=== PATIENT | male | born 1975 | race African-American/Black ===

== ENCOUNTER 2018-09-08 11:19 | Emergency (ER) | payer BC, OTHER, SELFPAY ==
[2018-09-08 11:43] LABS: Urine Blood 1+ (NEG); Urine Glucose NEGATIVE (NEG); Urine Protein NEGATIVE (NEG); Urine Specific Gravity 1.025 (1.005-1.030)
--- NOTE | 2018-09-08 11:56 | EDPHYS ---
Physician Documentation [facility] Name: Guicho Platt Age: 43 yrs Sex: Male : 1975 Arrival Date: 09/08/2018 Time: 11:23 Bed 20 Private MD: ED Physician Bertrand Brooks HPI: 09/08 11:52 This 43 yrs old Black Male presents to ER via Ambulatory with complaints of Dizziness. sergio 11:52 The patient presents with dizziness. Onset: The symptoms/episode began/occurred just sergio prior to arrival. Context: occurred while the patient was working, in heat, no ventilation. Modifying factors: The symptoms are alleviated by getting in cool enviroment. Associated signs and symptoms: The patient has no apparent associated signs or symptoms. Severity of symptoms: At their worst the symptoms were mild in the emergency department the symptoms are unchanged. Patient's baseline: Neuro: alert and fully oriented. The patient has not experienced similar symptoms in the past. Historical: - Allergies: 11:25 No Known Allergies; hj - Home Meds: 11:25 None [Active]; hj - PMHx: 11:25 None; hj - PSHx: 11:25 None; hj - Immunization history:: Adult Immunizations. - Social history:: Smoking status: . - Ebola Screening: : Patient denies travel to an Ebola-affected area in the 21 days before illness onset. - Family history:: not pertinent. ROS: 11:52 Constitutional: Negative for fever, chills, and weight loss, Eyes: Negative for injury, sergio pain, redness, and discharge, ENT: Negative for injury, pain, and discharge, Neck: Negative for injury, pain, and swelling, Cardiovascular: Negative for chest pain, palpitations, and edema, Respiratory: Negative for shortness of breath, cough, wheezing, and pleuritic chest pain, Abdomen/GI: Negative for abdominal pain, nausea, vomiting, diarrhea, and constipation, Back: Negative for injury and pain, : Negative for injury, bleeding, discharge, and swelling, MS/Extremity: Negative for injury and deformity, Skin: Negative for injury, rash, and discoloration, Psych: Negative for depression, anxiety, suicide ideation, homicidal ideation, and hallucinations, Allergy/Immunology: Negative for hives, rash, and allergies, Endocrine: Negative for neck swelling, polydipsia, polyuria, polyphagia, and marked weight changes, Hematologic/Lymphatic: Negative for swollen nodes, abnormal bleeding, and unusual bruising. 11:52 Neuro: Positive for dizziness. Exam: 11:52 Constitutional: This is a well developed, well nourished patient who is awake, alert, sergio and in no acute distress. Head/Face: Normocephalic, atraumatic. Eyes: Pupils equal round and reactive to light, extra-ocular motions intact. Lids and lashes normal. Conjunctiva and sclera are non-icteric and not injected. Cornea within normal limits. Periorbital areas with no swelling, redness, or edema. ENT: Nares patent. No nasal discharge, no septal abnormalities noted. Tympanic membranes are normal and external auditory canals are clear. Oropharynx with no redness, swelling, or masses, exudates, or evidence of obstruction, uvula midline. Mucous membranes moist. Neck: Trachea midline, no thyromegaly or masses palpated, and no cervical lymphadenopathy. Supple, full range of motion without nuchal rigidity, or vertebral point tenderness. No Meningismus. Chest/axilla: Normal chest wall appearance and motion. Nontender with no deformity. No lesions are appreciated. Cardiovascular: Regular rate and rhythm with a normal S1 and S2. No gallops, murmurs, or rubs. Normal PMI, no JVD. No pulse deficits. Respiratory: Lungs have equal breath sounds bilaterally, clear to auscultation and percussion. No rales, rhonchi or wheezes noted. No increased work of breathing, no retractions or nasal flaring. Abdomen/GI: Soft, non-tender, with normal bowel sounds. No distension or tympany. No guarding or rebound. No evidence of tenderness throughout. Back: No spinal tenderness. No costovertebral tenderness. Full range of motion. Male : Normal genitalia with no discharge or lesions. Skin: Warm, dry with normal turgor. Normal color with no rashes, no lesions, and no evidence of cellulitis. MS/ Extremity: Pulses equal, no cyanosis. Neurovascular intact. Full, normal range of motion. Neuro: Awake and alert, GCS 15, oriented to person, place, time, and situation. Cranial nerves II-XII grossly intact. Motor strength 5/5 in all extremities. Sensory grossly intact. Cerebellar exam normal. Normal gait. Psych: Awake, alert, with orientation to person, place and time. Behavior, mood, and affect are within normal limits. 11:52 Musculoskeletal/extremity: DVT Exam: No signs of deep vein thrombosis. no pain, no swelling, no tenderness, negative Homans' sign noted on exam, no appreciated bluish discoloration, no erythema, no increased warmth. Vital Signs: 11:25 BP 118 / 71; Pulse 51; Resp 18; Temp 98.2(O); Pulse Ox 99% on R/A; Weight 86.18 kg; hj Height 6 ft. 1 in. (185.42 cm); Pain 0/10; 11:25 Body Mass Index 25.07 (86.18 kg, 185.42 cm) MDM: 11:33 Patient medically screened. [facility] 11:54 Data reviewed: vital signs, nurses notes. [facility] 09/08 11:42 Order name: Urine Dipstick--Ancillary (enter results) 09/08 11:44 Order name: Urine Dipstick-Ancillary EDMS Administered Medications: No medications were administered Disposition: 09/08/18 11:55 Discharged to Home. Impression: Dizziness and giddiness, Heat fatigue, transient. - Condition is Stable. - Discharge Instructions: Dizziness, Heat Exhaustion Information, Dizziness, [id number]. - Medication Reconciliation Form, Thank You Letter, Antibiotic Education, Prescription Opioid Use, Work release form form. - Follow up: Private Physician; When: 2 - 3 days; Reason: Recheck today's complaints, Continuance of care, Re-evaluation by your physician. - Problem is new. - Symptoms have improved. Signatures: Dispatcher [employer] EDMS Bertrand Brooks MD MD cha Joaquin, Henry, RN RN Barb Alanis RN RN tw2 Corrections: (The following items were deleted from the chart) 12:04 11:55 09/08/2018 11:55 Discharged to Home. Impression: Dizziness and giddiness; Heat tw2 fatigue, transient. Condition is Stable. Forms are Work release form, Medication Reconciliation Form, Thank You Letter, Antibiotic Education, Prescription Opioid Use. Follow up: Private Physician; When: 2 - 3 days; Reason: Recheck today's complaints, Continuance of care, Re-evaluation by your physician. Problem is new. Symptoms have improved. [facility]
--- NOTE | 2018-09-08 11:56 | ER ---
Nurse's Notes [facility] Name: Guicho Platt Age: 43 yrs Sex: Male : 1975 Arrival Date: 09/08/2018 Time: 11:23 Bed 20 Private MD: Diagnosis: Dizziness and giddiness;Heat fatigue, transient Presentation: 09/08 11:23 Presenting complaint: Patient states: i was at work and was assigned on another facility, they don't have a good ventilation, i started feeling dizzy and i wanted to throw up; i requested to see a doctor;. Transition of care: patient was not received from another setting of care. Onset of symptoms was September 08, 2018. Risk Assessment: Do you want to hurt yourself or someone else? Patient reports no desire to harm self or others. Initial Sepsis Screen: Does the patient meet any 2 criteria? No. Patient's initial sepsis screen is negative. Does the patient have a suspected source of infection? No. Patient's initial sepsis screen is negative. Care prior to arrival: None. 11:23 Method Of Arrival: Ambulatory 11:23 Acuity: PHILLIP 4 Triage Assessment: 11:36 General: Appears in no apparent distress. slender, Behavior is calm, cooperative, tw2 appropriate for age. 11:44 Pain: Denies pain. tw2 Historical: - Allergies: 11:25 No Known Allergies; - Home Meds: 11:25 None [Active]; - PMHx: 11:25 None; - PSHx: 11:25 None; - Immunization history:: Adult Immunizations. - Social history:: Smoking status: . - Ebola Screening: : Patient denies travel to an Ebola-affected area in the 21 days before illness onset. - Family history:: not pertinent. Screenin:35 Abuse screen: Denies threats or abuse. Nutritional screening: No deficits noted. tw2 Tuberculosis screening: No symptoms or risk factors identified. Fall Risk None identified. Assessment: 11:35 General: Appears in no apparent distress. slender, Behavior is calm, cooperative, tw2 appropriate for age. Pain: Denies pain. Neuro: Level of Consciousness is awake, alert, obeys commands, Oriented to person, place, time, situation. Cardiovascular: Patient's skin is warm and dry. Respiratory: Airway is patent Respiratory effort is even, unlabored, Respiratory pattern is regular, symmetrical. GI: No signs and/or symptoms were reported involving the gastrointestinal system. : No signs and/or symptoms were reported regarding the genitourinary system. EENT: No signs and/or symptoms were reported regarding the EENT system. Derm: No signs and/or symptoms reported regarding the dermatologic system. Musculoskeletal: Range of motion: intact in all extremities. 12:03 Reassessment: Patient appears in no apparent distress at this time. No changes from tw2 previously documented assessment. Patient and/or family updated on plan of care and expected duration. Pain level reassessed. Patient is alert, oriented x 3, equal unlabored respirations, skin warm/dry/pink. Vital Signs: 11:25 BP 118 / 71; Pulse 51; Resp 18; Temp 98.2(O); Pulse Ox 99% on R/A; Weight 86.18 kg; hj Height 6 ft. 1 in. (185.42 cm); Pain 0/10; 11:25 Body Mass Index 25.07 (86.18 kg, 185.42 cm) ED Course: 11:23 Patient arrived in ED. mr 11:24 Triage completed. hj 11:25 Arm band placed on right wrist. 11:33 Bertrand Brooks MD is Attending Physician. [facility] 11:35 Barb Alanis, MAICOL is Primary Nurse. tw2 11:35 Bed in low position. Call light in reach. tw2 11:44 Urine Dipstick--Ancillary (enter results) Sent. tw2 12:04 No provider procedures requiring assistance completed. Patient did not have IV access tw2 during this emergency room visit. Administered Medications: No medications were administered Outcome: 11:55 Discharge ordered by . [facility] 12:04 Discharged to home ambulatory. tw2 12:04 Condition: stable 12:04 Discharge instructions given to patient, Instructed on discharge instructions, follow up and referral plans. Demonstrated understanding of instructions, follow-up care. 12:04 Patient left the ED. tw2 Signatures: Bertrand Brooks MD MD cha Rivera, Mary mr CheryMariano RN RN hj Wise, Tara, RN RN tw2 Corrections: (The following items were deleted from the chart) 12:01 11:23 Acuity: PHILLIP 3 [facility]
== END 2018-09-08 12:04 | disposition home or self-care (01) ==
LOC: ER 11:19
DX: T67.6XXA Heat fatigue, transient, initial encounter (principal); R42 Dizziness and giddiness
CPT/HCPCS: 81003; 99283